=== PATIENT | female | born 1985 | race Caucasian/White ===

== ENCOUNTER 2018-12-15 09:05 | Day surgery (SDC) | payer BC, OTHER ==
[2018-12-12 09:19] VITALS: BMI 28.3
[~2018-12-15 09:05] MED LIST: DEXAMETHASONE SOD PHOSPHATE 10 MG/ML 1 ML VIAL IV ONE; DEXAMETHASONE SOD PHOSPHATE 4 MG/ML 1 ML VIAL IV ONE; FAMOTIDINE 20 MG/2 ML VIAL IV ONE; LACTATED RINGERS 1,000 ML IV SCH; LIDOCAINE 1% 20 ML VIAL (10MG/ML) FOR IV START INTRADERMA PRN; ONDANSETRON 4 MG/2 ML VIAL IVP ONE; OXYMETAZOLINE 0.05% NASL SPRAY 1 SPRAY BOTTLE NASAL ONE; SCOPOLAMINE 1.5MG/72HR PATCH TRANSDERM ONE; ceFAZolin 1,000 MG in DEXTROSE/WATER 1 50ML.BAG IV ONE
[2018-12-15] MEDS ORDERED: fentaNYL (PF) 50 MCG/ML 2 ML AMP ONE (11:28)
[2018-12-15] MEDS ORDERED: ROCURONIUM BROMIDE 10 MG/ML 10 ML VIAL IV ONE (11:28)
[2018-12-15] MEDS ORDERED: LIDOCAINE 1%-EPI 1:100,000 20 ML VIAL SQ ONE ×2 (11:28)
[2018-12-15] MEDS ORDERED: MIDAZOLAM 2 MG/2 ML VIAL ONE (11:28)
[2018-12-15] MEDS ORDERED: FLUORESCEIN STRIPS 1 MG STRIP MISCELLANE ONE (11:28)
[2018-12-15] MEDS ORDERED: HYDROmorphone (PF) 1 MG/ML ONE (11:28)
[2018-12-15] MEDS ORDERED: GLYCOPYRROLATE 0.2 MG/ML 2 ML VIAL ONE (11:28)
[2018-12-15] MEDS ORDERED: DEXAMETHASONE SOD PHOS (MDV) 100 MG/10 ML VIAL ONE (11:28)
[2018-12-15] MEDS ORDERED: LIDOCAINE 1% INJ 10MG/ML (20 ML MDV) ONE (11:28)
[2018-12-15] MEDS ORDERED: NEOSTIGMINE 1 MG/ML 10 ML VIAL ONE (11:28)
[2018-12-15] MEDS ORDERED: EPINEPHrine 1 MG/ML (MDV) 30 ML VIAL IRRIGATION ONE (11:28)
[2018-12-15] MEDS ORDERED: PROPOFOL 10 MG/ML 20 ML VIAL IV ONE (11:28)
[2018-12-15] MEDS ORDERED: BUPIVACAIN-EPI 0.5%-1:200,000 30 ML VIAL SQ ONE ×2 (11:29)
[2018-12-15] MEDS ORDERED: LACTATED RINGERS 1,000 ML IV ONE (12:31)
[2018-12-15] MEDS: HYDROmorphone 0.5 MG/0.5 ML SYRINGE IVP PRN ×2 (12:48→12:54)
[2018-12-15] MEDS ORDERED: diphenhydrAMINE 50 MG/ML 1 ML VIAL IVP ONE (12:53)
[2018-12-15 13:01] VITALS: TEMP 97.3
--- NOTE | 2018-12-15 13:06 | P.OP ---
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 She had polyp recurrence in the ethmoid sphenoid and frontal sinuses and removal of the polyps was recommended. We decided to insert a drug-eluting stent. All risks, benefits, and alternative therapies were discussed. Consent was obtained and all questions were answered. Operative Findings: Patient had polyp disease and the sphenoid ethmoid and frontal sinuses. Is a mycetoma on the left side that was removed Description of Procedure: Patient was taken to the operative room placed in the supine position. A general inhalation anesthetic was administered to the patient by mask and subsequently intubated with a cuffed endotracheal tube by the department of anesthesia with a functioning IV line in place. Patient was monitored throughout the entire case by the department of anesthesia. With use of the 0 Ochoa chuck scope and endoscopic visualization the left-sided mycetoma was removed which was attached to the opening of the maxillary sinus on the left. We removed polypoid disease in the ethmoid sinuses and we did a total ethmoidectomy removing all of of the ethmoid polyps along with removal of the sphenoid polyps and a reopening of the sinuses. All ethmoid septations were removed along with polyps and the sphenoid sinuses were opened widely. Attention was then paid to the nasal frontal duct region which was filled with polyps we remove the polyps from the nasal frontal duct we then balloon frontal ostium wider and we remove diseased tissue from the frontal sinuses we also did a frontal sinus exploration. After the frontal sinus disease was opened and the frontal sinuses were explored, a propel mini was inserted. We then inserted a propel into the ethmoid sinuses bilaterally. Excellent results were obtained. Powdered Surgicel was inserted for hemostasis and the patient was taken to pos tanesthesia recovery in excellent condition. A follow-up is scheduled for 1 week and the patient is to call me if any problems should arise. No splints and nasal packing was placed.
[2018-12-15] MEDS ORDERED: MEPERIDINE 50 MG/ML SYRINGE IVP ONE (13:27)
[2018-12-15] MEDS ORDERED: ACETAMINOPHEN TAB 500 MG TAB PO ONE (14:14)
[2018-12-15] MEDS ORDERED: MELOXICAM 7.5 MG TAB PO SCH (14:15)
[2018-12-15 14:32] VITALS: BP 132/83; PULSE 96; RESP 18
== END 2018-12-15 15:20 | disposition home or self-care (01) ==
LOC: OR 09:05
PROVIDERS: ATTEND Otolaryngology
DX: J32.9 Chronic sinusitis, unspecified (principal); J33.8 Other polyp of sinus; J30.89 Other allergic rhinitis; B47.9 Mycetoma, unspecified; K21.9 Gastro-esophageal reflux disease without esophagitis; F17.210 Nicotine dependence, cigarettes, uncomplicated; Z86.19 Personal history of other infectious and parasitic diseases; Z79.2 Long term (current) use of antibiotics; Z79.3 Long term (current) use of hormonal contraceptives; Z79.891 Long term (current) use of opiate analgesic; Z79.52 Long term (current) use of systemic steroids; Z79.899 Other long term (current) drug therapy; Z88.1 Allergy status to other antibiotic agents; Z88.8 Allergy status to other drugs, medicaments and biological substances; Z88.5 Allergy status to narcotic agent; Z88.2 Allergy status to sulfonamides
CPT/HCPCS: 31257; 31253; 31299; 81025; 88305; C2625 ×2; C1726; J0171; J2250; J1200; J1100 ×2; J2710; J2175; J2405; J2001; J3010; J1170 ×2; J0690; J2704